=== PATIENT | male | born 1980 | race Native Hawaiian/Other Pacific Islander ===

== ENCOUNTER 2017-12-30 22:35 | Emergency (ER) | payer MEDICAID ==
[2017-12-30 22:36] VITALS: BMI 32.5
[2017-12-30 22:44] VITALS: TEMP 98.4; O2SAT 99
--- NOTE | 2017-12-30 23:54 | ED PDOC ---
HPI: Psych/Substance Abuse Time Seen by Provider: 12/30/17 23:03 Chief Complaint (Nursing): Alcohol Ingestion Chief Complaint (Provider): aggressive behavior History Per: Patient, Family History/Exam Limitations: no limitations Additional Complaint(s): 37 y/o male brought in by EMS for evaluation of aggressive behavior at home. Patient states he has been under a lot of stress lately, and tonight he "snapped " at his son, no physical contact involved. Father at bedside, states he has never scene his son act like this and is concerned. Patient denies suicidal/ homicidal ideations, acute medical complaints. Patient states he takes Suboxone daily for previous opiate abuse, other denies drug/alcohol use Past Medical History Reviewed: Historical Data, Nursing Documentation, Vital Signs Vital Signs: Last Vital Signs Temp 98.4 F 12/30/17 22:41 Pulse 94 H 12/30/17 22:41 Resp 18 12/30/17 22:41 BP 138/78 12/30/17 22:41 Pulse Ox 99 12/30/17 22:41 - Medical History PMH: No Chronic Diseases Denies: Depression - Surgical History Surgical History: No Surg Hx - Family History Family History: States: No Known Family Hx - Living Arrangements Living Arrangements: With Family - Social History Current smoker - smoking cessation education provided: No Alcohol: None Drugs: Prescription medications - Home Medications Home Medications: Ambulatory Orders Medication Instructions Recorded Acetaminophen/Oxycodone Hydr 1 tab PO Q6 #10 tab 04/05/12 [Percocet 325 mg-5 mg] Acetaminophen/Oxycodone Hydr 1 tab PO Q6 #20 tab 04/05/12 [Percocet 325 mg-5 mg] Naproxen 500 mg PO 04/05/12 Tramadol Hydrochloride [Tramadol] 50 mg PO 04/05/12 - Allergies Allergies/Adverse Reactions: Allergies Allergy/AdvReac Type Severity Reaction Status Date / Time No Known Allergies Allergy Verified 04/05/12 17:02 Review of Systems ROS Statement: Except As Marked, All Systems Reviewed And Found Negative Psych: Positive for: Other (aggressive behavior) Physical Exam - Reviewed Nursing Documentation Reviewed: Yes Vital Signs Reviewed: Yes - Physical Exam Appears: Positive for: Well, Non-toxic, No Acute Distress Head Exam: Positive for: ATRAUMATIC, NORMAL INSPECTION, NORMOCEPHALIC Skin: Positive for: Normal Color Eye Exam: Positive for: Normal appearance ENT: Positive for: Normal ENT Inspection Cardiovascular/Chest: Positive for: Regular Rate, Rhythm Respiratory: Positive for: Normal Breath Sounds Gastrointestinal/Abdominal: Positive for: Normal Exam Back: Positive for: Normal Inspection Extremity: Positive for: Normal ROM Neurologic/Psych: Positive for: Alert, Oriented (x3) - ECG O2 Sat by Pulse Oximetry: 99 - Progress ED Course And Treament: Patient evaluated by beadworker; does not meet criteria for admission at this time as per Dr. Ballesteros Patient stable for discharge Return precautions given Disposition - Clinical Impression Clinical Impression: Mood disorder - Patient ED Disposition Is Patient to be Admitted: No Counseled Patient/Family Regarding: Studies Performed, Diagnosis, Need For Followup - Disposition Disposition: Routine/Home Disposition Time: 03:00 Condition: STABLE
[2017-12-31 06:14] VITALS: BP 101/63; PULSE 75; RESP 16
== END 2017-12-31 06:14 | disposition home or self-care (01) ==
LOC: H.ER 22:35
DX: F39 Unspecified mood [affective] disorder (principal); Z81.3 Family history of other psychoactive substance abuse and dependence

== ENCOUNTER 2019-01-24 20:43 | Emergency (ER) | payer SELFPAY ==
[2019-01-24 20:43] VITALS: BMI 32.5
[2019-01-24 20:47] VITALS: RESP 18
--- NOTE | 2019-01-24 21:07 | ED PDOC ---
HPI: Psych/Substance Abuse Time Seen by Provider: 01/24/19 20:50 Chief Complaint (Nursing): Alcohol Ingestion Chief Complaint (Provider): Alcohol ingestion ED Caveat: Intoxicated History Per: Patient, Family (girlfriend) History/Exam Limitations: intoxication Onset/Duration Of Symptoms: Days (1x) Current Symptoms Are (Timing): Still Present Severity: Moderate Additional Complaint(s): 39 year old male with a past medical history of alcohol and percocet abuse is brought into the ED by his girlfriend for alcohol intoxication. Patient was recently on suboxone and has been off of it for 1x month. Patient is a heavy drinker and drinks 5x shots per day. Patient and his girlfriend live together. Patient's girlfriend found out that he was drinking today and brought him in today as she has work tomorrow and is unable to watch him. Patient's girlfriend also states that just prior to arrival, they were at a [employer] when the patient fell/slouched over. Patient's girlfriend denies head injuries, other injuries, of medical complaints. PMD: Darrick Hood MD Past Medical History Reviewed: Historical Data, Nursing Documentation, Vital Signs Vital Signs: Last Vital Signs Temp 98.4 F 01/24/19 20:43 Pulse 74 01/24/19 20:43 Resp 18 01/24/19 20:43 BP 126/85 01/24/19 20:43 Pulse Ox 97 01/24/19 20:43 EDITH Report Viewed: Yes Primary Care Provider: Darrick Hood - Medical History PMH: No Chronic Diseases Denies: Depression, Diabetes, Hepatitis, HIV, HTN, Seizures, Sexually Transmitted Disease - Surgical History Other surgeries: foot surgery - Family History Family History: States: No Known Family Hx - Living Arrangements Living Arrangements: Other (with girlfriend) - Social History Current smoker - smoking cessation education provided: Yes (1x pack per day) Alcohol: > 2 Drinks/Day (5x drinks per day) Drugs: Other (history of percocet abuse) - Home Medications Home Medications: Ambulatory Orders Medication Instructions Recorded Buprenorphine HCl/Naloxone HCl 1 each SL DAILY 05/29/18 [Suboxone 8 mg-2 mg Sl Film] - Allergies Allergies/Adverse Reactions: Allergies Allergy/AdvReac Type Severity Reaction Status Date / Time No Known Allergies Allergy Verified 05/29/18 17:02 Review of Systems ROS Statement: Except As Marked, All Systems Reviewed And Found Negative Physical Exam - Reviewed Nursing Documentation Reviewed: Yes Vital Signs Reviewed: Yes - Physical Exam Appears: Positive for: Non-toxic, No Acute Distress. Negative for: Well (somnolent, visibly intoxicated) Head Exam: Positive for: ATRAUMATIC (no signs of head trauma), NORMOCEPHALIC Skin: Positive for: Normal Color, Warm, Dry Eye Exam: Positive for: Normal appearance ENT: Positive for: Normal ENT Inspection Neck: Positive for: Normal Cardiovascular/Chest: Positive for: Regular Rate, Rhythm Respiratory: Positive for: Normal Breath Sounds Gastrointestinal/Abdominal: Positive for: Normal Exam, Soft. Negative for: Tenderness Extremity: Positive for: Normal ROM Neurological/Psych: Positive for: Alert, Oriented (x1), Other (appears intoxicated). Negative for: Awake (somnolent, arousable) - ECG O2 Sat by Pulse Oximetry: 97 (RA) Pulse Ox Interpretation: Normal Medical Decision Making Medical Decision Makin:50 Initial impression: 39 year old male with alcohol intoxication rule out head trauma Initial plan: * CT head w/o contrast * alcohol serum * drug screen urinary * reevaluation 2329 Labs reviewed, patient with serum alcohol level of [id number] Head Findings: The ventricles and sulci are symmetric bilaterally. There is no evidence of acute hemorrhage or infarct. There is no midline shift, mass effect, or extra-axial fluid collection. The osseous structures are unremarkable. The visualized paranasal sinuses and mastoid air cells are clear. A chronic calcified superficial soft tissue lesion is seen in the left upper parietal region. Impression: No acute intracranial abnormality. 0130 Patient sleeping in room, is in no distress Vitals stable 0430 Patient is awake, alert and oriented x 3 with steady gait. vitals stable. airway intact. Patient tolerated PO intake. Stable for discharge home. Scribe Attestation: Documented by Arti Dennis, acting as a scribe for Mikey Vee MD. Provider Scribe Attestation: All medical record entries made by the Scribe were at my direction and personally dictated by me. I have reviewed the chart and agree that the record accurately reflects my personal performance of the history, physical exam, medical decision making, and the department course for this patient. I have also personally directed, reviewed, and agree with the discharge instructions and disposition. Disposition - Clinical Impression Clinical Impression: Alcohol abuse - Patient ED Disposition Is Patient to be Admitted: No Counseled Patient/Family Regarding: Studies Performed, Diagnosis, Need For Followup (and detox) - Disposition Disposition: Routine/Home Disposition Time: 02:34 Condition: IMPROVED Additional Instructions: follow up with Dr Hood in 1-2 days return to the ED with any worsening or concerning symptoms Instructions: Alcohol Use - When Is Drinking a Problem?, Alcohol Abuse and Alcoholism (DC), Effects of Alcohol on Your Health Forms: [facility] (Yi)
[2019-01-24 21:48] LABS: BARBITURATES, UR NEGATIVE (NEGATIVE); BENZODIAZEPINES, UR NEGATIVE (NEGATIVE); OPIATES, UR NEGATIVE (NEGATIVE); PHENCYCLIDINE, UR NEGATIVE (NEGATIVE)
[2019-01-25 06:25] VITALS: BP 121/82; PULSE 81; TEMP 98.1
--- NOTE | 2019-01-25 10:34 | CT ---
Date of service: 01/24/2019 PROCEDURE: CT HEAD WITHOUT CONTRAST. HISTORY: drunk, possible fall COMPARISON: None available. TECHNIQUE: Axial computed tomography images were obtained through the head/brain without intravenous contrast. Radiation dose: Total exam DLP = 1341.02 mGy-cm. This CT exam was performed using one or more of the following dose reduction techniques: Automated exposure control, adjustment of the mA and/or kV according to patient size, and/or use of iterative reconstruction technique. FINDINGS: HEMORRHAGE: No intracranial hemorrhage. BRAIN: Normal ortiz-white matter differentiation and density are appreciated throughout the cerebrum and cerebellum with the brainstem appearing unremarkable as well. There is no mass effect. There is no suspicious extra-axial fluid collection and the midline brain anatomy appears diffusely unremarkable. VENTRICLES: Unremarkable. No hydrocephalus. CALVARIUM: No destructive bony lesion or displaced fracture identified including through the skullbase. Two left-sided partially calcified chronic sebaceous cysts are identified at the left parietal and occipital scalp. Other partially calcified subcutaneous lesions are not excluded. PARANASAL SINUSES: Unremarkable as visualized. No significant inflammatory changes. MASTOID AIR CELLS: Unremarkable as visualized. No inflammatory changes. OTHER FINDINGS: None. IMPRESSION: Unremarkable unenhanced head CT. Two incidental left scalp chronic sebaceous cysts identified. Other partially calcified subcutaneous lesions are not excluded. Preliminary report provided by Laura, 01/24/2019, 11:40 p.m..
[2019-01-27 10:34] VITALS: O2SAT 97
== END 2019-01-25 06:20 | disposition home or self-care (01) ==
LOC: H.ER 20:43
DX: F10.129 Alcohol abuse with intoxication, unspecified (principal); F17.210 Nicotine dependence, cigarettes, uncomplicated; Y90.8 Blood alcohol level of 240 mg/100 ml or more
CPT/HCPCS: 70450; 82948; 99283; G0480